=== PATIENT | female | born 2000 | race Caucasian/White ===

== ENCOUNTER 2018-06-18 11:10 | Inpatient (IN) | payer OTHER ==
[~2018-06-18] VITALS: Ht 162.6 cm; Wt 71.7 kg
[2018-06-18 11:34] VITALS: BP 108/64
[2018-06-18 12:18] LABS: BASOPHILS % (AUTO) 0.2 % (0.0-2.0); EOSINOPHILS % (AUTO) 0.3 % (0.0-4.0); HEMATOCRIT 32.8 % (36-48); HEMOGLOBIN 11.1 g/dL (12.0-16.0); LYMPHOCYTES # (AUTO) 1.3 K/uL (2.5-16.5); LYMPHOCYTES % (AUTO) 17.6 % (20.5-51.1); MEAN CORPUSCULAR HEMOGLOBIN 30 pg (27-31); MEAN CORPUSCULAR HGB CONC 34 g/dL (33-37); MEAN CORPUSCULAR VOLUME 88.6 fL (80-94); MONOCYTES # (AUTO) 0.5 K/uL (0.8-1.0); MONOCYTES % (AUTO) 7.3 % (1.7-9.3); NEUTROPHILS # (AUTO) 5.4 K/uL (1.8-7.7); NEUTROPHILS % (AUTO) 74.6 % (42.2-75.2); PLATELET COUNT (AUTO) 156 K/uL (140-450); RED CELL DISTRIBUTION WIDTH 13.2 % (11.6-13.7); WHITE BLOOD COUNT (AUTO) 7.2 K/uL (4.5-11.0)
[2018-06-18] MEDS ORDERED: PREN-380 PO (13:13)
[2018-06-18] MEDS ORDERED: FERR325E14 PO (13:13)
[2018-06-18 13:55] LABS: ANION GAP 13.2 (8-16); CARBON DIOXIDE 21.7 mmol/L (21-32); POTASSIUM 3.9 mmol/L (3.5-5.1)
[2018-06-18 14:01] LABS: ALBUMIN 2.4 g/dL (3.4-5.0); TOTAL BILIRUBIN 0.1 mg/dL (0.0-1.0)
[2018-06-18 14:11] LABS: CREATININE 0.3 mg/dL (0.6-1.3)
[2018-06-18] MEDS ORDERED: BETAMETH ACET/BETAMETH NA PH 30 MG/5 ML VIAL IM STA (15:33)
[2018-06-18] MEDS ORDERED: NALBUPHINE 10 MG/ML AMP IVP PRN (15:35)
[2018-06-18] MEDS ORDERED: BETAMETH ACET/BETAMETH NA PH 30 MG/5 ML VIAL IM ONE (15:46)
[2018-06-18] MEDS: LACTATED RINGERS 1,000 ML IV SCH ×2 (16:12→23:11)
[2018-06-18] MEDS ORDERED: diphenhydrAMINE 50 MG/ML VIAL IVP PRN (23:05)
[2018-06-18] MEDS ORDERED: diphenhydrAMINE 50 MG/ML VIAL ONE (23:10)
[2018-06-19] MEDS: LACTATED RINGERS 1,000 ML IV SCH ×2 (07:45→14:33)
[2018-06-19] MEDS ORDERED: TERBUTALINE 1 MG/ML VIAL SUBQ ONE (08:16)
--- NOTE | 2018-06-19 08:30 | NUR ---
PATIENT HAS BEEN SCREENED AND CATEGORIZED LOW NUTRITION RISK. PATIENT WILL BE SEEN WITHIN 7 DAYS OF ADMISSION. 06/24/[address]
[2018-06-19] MEDS: TERBUTALINE 1 MG/ML VIAL SUBQ SCH ×2 (08:32→11:33)
--- NOTE | 2018-06-19 12:28 | NUR ---
CM NOTE INITIAL REVIEW FAXED TO [facility] [phone]
[2018-06-19] MEDS ORDERED: AMPICILLIN 1,000 MG VIAL ONE (21:41)
== END 2018-06-20 02:35 | disposition home or self-care (01) | DRG 566 ==
LOC: MLD 11:10 → MFCC 15:05
PROVIDERS: ADMIT Obstetrics & Gynecology; ATTEND Obstetrics & Gynecology
DX: O26.612 Liver and biliary tract disorders in pregnancy, second trimester (principal); K83.1 Obstruction of bile duct; Z3A.28 28 weeks gestation of pregnancy
CPT/HCPCS: 36415; 76805; 80053; 85025; J0290; J0702; J1200; J3105; J7120; Q0092

== ENCOUNTER 2018-07-08 13:00 | Inpatient (IN) | payer OTHER ==
[~2018-07-08] VITALS: Ht 162.6 cm; Wt 73.5 kg
[~2018-07-08 13:00] MED LIST: FERR325E14 PO; PREN-380 PO
[2018-07-08] MEDS ORDERED: TERBUTALINE 1 MG/ML VIAL SUBQ ONE ×2 (13:36→14:31)
[2018-07-08] MEDS: TERBUTALINE 1 MG/ML VIAL SUBQ SCH ×2 (13:40→14:29)
[2018-07-08] MEDS ORDERED: TERBUTALINE 2.5 MG TAB ONE (18:19)
[2018-07-08] MEDS ORDERED: TERBUTALINE 2.5 MG TAB PO SCH (18:30)
== END 2018-07-08 19:50 | disposition home or self-care (01) | DRG 566 ==
LOC: MLD 13:00
PROVIDERS: ADMIT Obstetrics & Gynecology; ATTEND Obstetrics & Gynecology
DX: O26.893 Other specified pregnancy related conditions, third trimester (principal); Z3A.31 31 weeks gestation of pregnancy
CPT/HCPCS: 36415; 59025; 76815; 81000; 96372; J3105; Q0092

== ENCOUNTER 2018-07-30 12:50 | Observation (INO) | payer OTHER ==
[2018-07-30 13:09] VITALS: BP 118/62
== END 2018-07-30 14:10 | disposition home or self-care (01) ==
LOC: MLD 12:50
PROVIDERS: ADMIT Obstetrics & Gynecology; ATTEND Obstetrics & Gynecology
DX: O36.8130 Decreased fetal movements, third trimester, not applicable or unspecified (principal); O62.9 Abnormality of forces of labor, unspecified; Z3A.35 35 weeks gestation of pregnancy
CPT/HCPCS: 76819; G0378; Q0092; 81000

== ENCOUNTER 2020-07-15 09:22 | Day surgery (SDC) | payer OTHER, SELFPAY ==
[~2020-07-15] VITALS: Ht 162.6 cm; Wt 70.8 kg
[2020-07-15] MEDS ORDERED: fentaNYL citrate 0.05 MG/ML VIAL ONE (11:36)
[2020-07-15] MEDS ORDERED: LIDOCAINE 2% 100 MG/5 ML UJET TP ONE (11:36)
[2020-07-15] MEDS ORDERED: fentaNYL citrate 0.05 MG/ML VIAL IVP ONE (13:00)
== END 2020-07-15 12:32 | disposition home or self-care (01) ==
LOC: MDS 09:22 → MFCC 09:24 → MDS 12:32
PROVIDERS: ATTEND Internal Medicine Gastroenterology
DX: K62.5 Hemorrhage of anus and rectum (principal); K51.90 Ulcerative colitis, unspecified, without complications; Z20.828 Contact with and (suspected) exposure to other viral communicable diseases; Z79.899 Other long term (current) drug therapy
CPT/HCPCS: 45380; 81025; 88305; J3010; U0003